=== PATIENT | male | born 1990 | race African-American/Black ===

== ENCOUNTER 2020-04-02 04:30 | Emergency (ER) | payer SELFPAY ==
[~2020-04-02] VITALS: Ht 188 cm; Wt 88.0 kg
[2020-04-02] MEDS ORDERED: DIPHENHYDRAMINE 50MG/ML VIAL IV ONE (05:00)
[2020-04-02] MEDS ORDERED: EPINEPHRINE 1:1000 1 MG/ML AMP IM ONE (05:00)
[2020-04-02] MEDS ORDERED: SODIUM CHLORIDE 0.9% 1,000 ML IV ONE ×2 (05:00→10:00)
[2020-04-02] MEDS ORDERED: METHYLPREDNISOLONE SOD SUCC 125 MG/2 ML VIAL IV ONE ×2 (05:00→10:30)
[2020-04-02] MEDS ORDERED: FAMOTIDINE 20MG/2ML VIAL IV ONE (05:00)
[2020-04-02 05:14] LABS: BASOPHILS % 0.6 % (0.0-2.0); EOSINOPHILS % 2.3 % (0.0-5.0); HEMATOCRIT. 40.9 % (42.0-52.0); HEMOGLOBIN. 13.5 g/dL (14.0-18.0); LYMPHOCYTES % 31.7 % (20.0-50.0); MEAN CORPUSCULAR HEMOGLOBIN 28.8 pg (28.0-32.0); MEAN CORPUSCULAR VOLUME 86.9 fL (80.0-94.0); MEAN PLATELET VOLUME 8.9 fl (7.4-10.4); MONOCYTES % 7.9 % (2.0-8.0); NEUTROPHILS % 57.5 % (40.0-76.0); PLATELET 232 x1000/uL (130-400); RED CELL DISTRIBUTION WIDTH 14.4 % (11.6-14.6)
[2020-04-02 05:18] LABS: CHLORIDE 107 mEq/L (98-107)
[2020-04-02 10:30] VITALS: BP 125/59
[2020-04-02] MEDS ORDERED: EPINEPHRINE 1:1000 1 MG/ML AMP INJ ONE (10:30)
[2020-04-02] MEDS ORDERED: GUAIFENESIN 200MG/10ML SUGAR FREE UDC PO PRN (11:15)
[2020-04-02] MEDS ORDERED: DIPHENHYDRAMINE 50MG/ML VIAL IV PRN (11:15)
[2020-04-02] MEDS ORDERED: KETOROLAC 15MG/ML VIAL IV PRN (11:15)
[2020-04-02] MEDS ORDERED: DOCUSATE SODIUM 100MG CAPSULE PO PRN (11:15)
[2020-04-02] MEDS ORDERED: NA PHOS,M-B/NA PHOS,DI-BA ENEMA 118ML PR PRN (11:15)
[2020-04-02] MEDS ORDERED: CLONIDINE 0.1MG TABLET PO PRN (11:15)
[2020-04-02] MEDS ORDERED: IPRATROPIUM/ALBUTEROL 0.5-3(2.5)MG/3ML NEB NEB PRN (11:15)
[2020-04-02] MEDS ORDERED: ACETAMINOPHEN 325MG TABLET PO PRN ×2 (11:15)
[2020-04-02] MEDS ORDERED: NITROGLYCERIN 0.4MG TABLET SL SL PRN (11:15)
[2020-04-02] MEDS ORDERED: ONDANSETRON HCL 4MG/2ML INJ IV PRN (11:15)
[2020-04-02] MEDS ORDERED: ZOLPIDEM TARTRATE 5MG TABLET PO PRN (11:15)
[2020-04-02] MEDS ORDERED: MAGNESIUM/ALUMINUM HYDROXIDE/SIMETHICONE 30ML UDC PO PRN (11:15)
[2020-04-02] MEDS ORDERED: IPRATROPIUM/ALBUTEROL 0.5-3(2.5)MG/3ML NEB HHN SCH (12:00)
[2020-04-02] MEDS ORDERED: METHYLPREDNISOLONE SOD SUCC 125 MG/2 ML VIAL IV SCH (19:00)
[2020-04-02] MEDS ORDERED: FAMOTIDINE 20MG TABLET PO SCH (21:00)
== END 2020-04-02 12:13 | disposition left against medical advice (07) ==
LOC: ER 04:30 → EDBEDREQ 10:52 → ENRESERV 11:14 → CANRESERV 11:14 → ER 12:13 → CANBEDREQ 12:40
DX: T78.3XXA Angioneurotic edema, initial encounter (principal); F12.10 Cannabis abuse, uncomplicated
CPT/HCPCS: 36415; 80053; 83036; 85025; 93005; 96361; 96372; 96374; 96375; 96376; 99285; J1200; J2930; J3490; J7030